=== PATIENT | male | born 2000 | race Two or more races ===

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

== ENCOUNTER 2020-07-28 05:10 | Emergency (ER) | payer MEDICAID ==
[~2020-07-28] VITALS: Ht 185.4 cm; Wt 112.0 kg
--- NOTE | 2020-07-28 05:21 | NUR ---
INITIAL PT CONTACT. PT PRESENTS TO ED C/O SORE THROAT, "RED DIARRHEA" X5 DAYS. ALSO C/O LOWER ABD PAIN X3 WEEKS. PT DENIES ANY URINARY SYMPTOMS. PT DENIES CONSUMING ANY RED FOODS. PT SITTING UPRIGHT ON GURNEY, NAD, VSS. PT DENIES ANY NEEDS AT THIS TIME. CALL LIGHT AND PERSONAL BELONGINGS WITHIN REACH.
--- NOTE | 2020-07-28 05:25 | NUR ---
ERP AT BEDSIDE
[2020-07-28] MEDS ORDERED: KETOROLAC 30 MG/1 ML IM ONE (05:30)
[2020-07-28] MEDS ORDERED: DEXAMETHASONE 4 MG TABLET PO ONE (05:30)
[2020-07-28] MEDS ORDERED: KETOROLAC 30 MG/1 ML ONE (05:32)
[2020-07-28] MEDS ORDERED: DEXAMETHASONE 4 MG TABLET ONE (05:32)
[2020-07-28 05:48] LABS: MICROSCOPIC NOT IND
[2020-07-28 06:00] VITALS: BP 132/74
[2020-07-28 06:03] LABS: BASOPHILS % (AUTO) 1 % (0-1); EOSINOPHILS % (AUTO) 4 % (1-7); LYMPHOCYTES % (AUTO) 38 % (22-44); MEAN CORPUSCULAR HEMOGLOBIN 29.2 pg (27.5-34.5); MEAN CORPUSCULAR HGB CONC 35.2 g/dL (33.2-36.2); MEAN PLATELET VOLUME 8.6 fL (7.4-10.4); MONOCYTES % (AUTO) 10 % (2-9); NEUTROPHILS % (AUTO) 47 % (42-75); PLATELET COUNT 265 x10^3/uL (130-400); RED BLOOD COUNT 5.41 x10^6/uL (4.38-5.82); RED CELL DISTRIBUTION WIDTH 13.9 % (9.4-14.8)
[2020-07-28 06:04] LABS: MD NO
[2020-07-28 06:08] LABS: ALANINE AMINOTRANSFERASE 59 U/L (12-78); ALBUMIN 3.9 g/dL (3.4-5.0); ANION GAP 7 mmol/L (5-15); CHLORIDE 110 mmol/L (98-107)
[2020-07-28 06:11] LABS: ALKALINE PHOSPHATASE 138 U/L (45-117); BILIRUBIN,TOTAL 0.2 mg/dL (0.2-1.0); CREATININE 0.85 mg/dL (0.7-1.3); TOTAL PROTEIN 7.5 g/dL (6.4-8.2)
--- NOTE | 2020-07-28 06:51 | NUR ---
BEDSIDE REPORT TO JUANIS LEMUS
== END 2020-07-28 07:34 | disposition home or self-care (01) ==
LOC: ED 05:58
DX: J02.0 Streptococcal pharyngitis (principal)
CPT/HCPCS: 36415; 80053; 81003; 83690; 85025; 87880; 96372; 99283; J1885

== ENCOUNTER 2021-01-18 21:51 | Emergency (ER) | payer MEDICAID ==
[~2021-01-18] VITALS: Ht 185.4 cm; Wt 111.5 kg
--- NOTE | 2021-01-18 22:18 | NUR ---
clock and watch hands dipper note: Pt to room from lobby.
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
[2021-01-18] MEDS ORDERED: KETOROLAC 60 MG/2 ML ONE (23:13)
[2021-01-18] MEDS ORDERED: METOCLOPRAMIDE 10MG TABLET ONE (23:13)
[2021-01-18 23:28] LABS: BASOPHILS % (AUTO) 1 % (0-1); EOSINOPHILS % (AUTO) 5 % (1-7); LYMPHOCYTES % (AUTO) 43 % (22-44); MEAN CORPUSCULAR HEMOGLOBIN 29.3 pg (27.5-34.5); MEAN CORPUSCULAR HGB CONC 35.1 g/dL (33.2-36.2); MEAN PLATELET VOLUME 8.5 fL (7.4-10.4); MONOCYTES % (AUTO) 7 % (2-9); NEUTROPHILS % (AUTO) 44 % (42-75); PLATELET COUNT 284 x10^3/uL (130-400); RED BLOOD COUNT 4.97 x10^6/uL (4.38-5.82); RED CELL DISTRIBUTION WIDTH 13.9 % (9.4-14.8)
[2021-01-18] MEDS ORDERED: KETOROLAC 60 MG/2 ML IM ONE (23:30)
[2021-01-18] MEDS ORDERED: METOCLOPRAMIDE 10MG TABLET PO ONE (23:30)
[2021-01-18 23:33] LABS: ALBUMIN 3.7 g/dL (3.4-5.0); ANION GAP 6 mmol/L (5-15); CALCIUM 8.8 mg/dL (8.5-10.1); CHLORIDE 106 mmol/L (98-107); CREATININE 0.76 mg/dL (0.7-1.3)
[2021-01-18 23:37] LABS: TROPONIN I < 0.015 ng/mL (0.000-0.045)
[2021-01-19 00:39] VITALS: BP 116/75
--- NOTE | 2021-01-19 00:39 | NUR ---
BREAK RN-CARE ASSUMED FOR DC. PT DC'D HOME WITH UNDERSTANDING OF INSTRUCTIONS. PT TO DC DESK, GAIT STEADY.
== END 2021-01-19 00:42 | disposition home or self-care (01) ==
LOC: ED 22:51
DX: R07.89 Other chest pain (principal); G43.909 Migraine, unspecified, not intractable, without status migrainosus
CPT/HCPCS: 36415; 71045; 80048; 82040; 84484; 85025; 93005; 96372; 99285; J1885; Q0181